=== PATIENT | female | born 1950 | race Two or more races ===

== ENCOUNTER 2016-08-18 23:50 | Emergency (ER) | payer OTHER ==
[~2016-08-18 23:50] MED LIST: AMITRIPTYLINE H25 MG PO; AMITRIPTYLINE H50 MG PO; DICLOFENAC SODI50 MG PO; EXCEDRIN MIGRA1 EACH PO; GLUCOPHAGE500 M1 PO; INDERAL LA60 M1 PO; INDERAL20 MG PO; PROTONIX PO; [UNRECOGNIZED DRUG - OTHER]
== END 2016-08-19 00:57 | disposition home or self-care (01) ==
LOC: SED 23:50
DX: S01.512A Laceration without foreign body of oral cavity, initial encounter (principal); I10 Essential (primary) hypertension; E11.9 Type 2 diabetes mellitus without complications; X58.XXXA Exposure to other specified factors, initial encounter
CPT/HCPCS: 99283

== ENCOUNTER → 2016-10-28 | Outpatient (CLI) | payer OTHER ==
--- NOTE | ~2016-10-28 | BD1 ---
[facility] A Service of [facility] & [facility] RADIOLOGY TEXT RESULTS PATIENT: ANABELLE GEORGE LOCATION: SRA : 46 UNIT #: [id number] AGE: [address]: BECCA ALAS APR SEX: F ORDER DR: [id number] [address] [address] [id number] O MR#: [id number] Acc #: [id number] NAME: ANABELLE GEORGE : 1950 SEX: F STUDY DATE/TIME: 10/28/2016 10:14 UNIT: [facility] ROOM: STUDY DESCRIPTION: BD Dexa Bone Dens 1+ Site Attending Physician: Becca Alas Aprn Referring Physician: Becca Alas Aprn Ordering Physician: Becca Alas Aprn Primary Care Physician: Becca Alas Aprn MEDICAL IMAGING REPORT This report is preliminary unless electronic signature is present. EXAM DEXA scan HISTORY 66-year-old female postmenopausal screening for osteoporosis. FINDINGS Bone density assessed utilizing a Trovebox bone densitometer. Total bone density within the lumbar spine was calculated 1.155 g/cm2. T-score score -0.2. Bone density within the proximal femurs was calculated at 0.944 g/cm2 the left femoral neck with a T-score of -0.7. In the right femoral neck this was calculated 1.072 g/cm2 with a T-score of 0.2. IMPRESSION Bone density within the lumbar spine and proximal femurs is within 1 standard deviation of the mean and therefore considered normal. Dictated by... Raj Bowers M.D. THIS IS AN ELECTRONICALLY VERIFIED REPORT Raj Bowers M.D. at 10/28/2016 3:32 PM Penelope TD: 10/28/2016 11:54 JOB #: [id number] MEDICAL IMAGING REPORT Page 1 of 1
== END | disposition home or self-care (01) ==
LOC: SRAD 08:56
DX: Z13.820 Encounter for screening for osteoporosis (principal); Z78.0 Asymptomatic menopausal state
CPT/HCPCS: 77080

== ENCOUNTER → 2017-03-03 | Outpatient (CLI) | payer OTHER ==
--- NOTE | ~2017-03-03 | US37 ---
[facility] A Service of [facility] RADIOLOGY TEXT RESULTS PATIENT: ANABELLE GEORGE LOCATION: SNIV : 46 UNIT #: [id number] AGE: [address]: BECCA ALAS APR SEX: F ORDER DR: [id number] [address] [address] [id number] P MR#: [id number] Acc #: [id number] NAME: ANABELLE GEORGE : 1950 SEX: F STUDY DATE/TIME: 03/03/2017 10:16 UNIT: SNIV ROOM: STUDY DESCRIPTION: US Carotid W/Doppler Bilateral Attending Physician: Becca Alas Aprn Referring Physician: Becca Alas Aprn Ordering Physician: Becca Alas Aprn Primary Care Physician: Becca Alas Aprn MEDICAL IMAGING REPORT This report is preliminary unless electronic signature is present. EXAM Bilateral carotid ultrasound DATE 03/03/2017 HISTORY Left-side carotid bruit. Headache. Diabetes. COMPARISON None. FINDINGS Real-time ventura-scale, color Doppler, spectral Doppler imaging was performed of the bilateral cervical carotid arteries and vertebral arteries. Estimated stenosis is based on standard NASCET methodology. FINDINGS No significant atherosclerotic plaquing is demonstrated within the right common carotid artery or visualized internal carotid artery. Right internal carotid artery peak systolic velocity proximal segment 88.2 cm/sec, mid segment 89.0 cm/sec, distal segment not seen by the technologist. Patient states the distal segment visualization was technically difficult. Right external carotid artery is patent. Normal spectral Doppler waveforms are demonstrated. Right vertebral artery cannot be satisfactorily visualized, not seen and not heard. The left common carotid artery demonstrates no significant atherosclerotic disease. Suspected mild plaquing in the proximal left internal carotid artery. The left internal carotid artery peak systolic velocity proximal segment 122.6 cm/sec, mid segment 64.6 cm/second, distal segment 70.4 cm/sec. Left external carotid artery is patent. Normal spectral Doppler [facility] A Service of [facility] & [facility] RADIOLOGY TEXT RESULTS PATIENT: ANABELLE GEORGE LOCATION: SNIV : 46 UNIT #: [id number] AGE: [address]: BECCA ALAS APR SEX: F ORDER DR: waveforms are demonstrated. Left vertebral artery is patent with normal antegrade flow. IMPRESSION 1. The study is limited. The distal right internal carotid artery cannot be visualized. Additionally, the right vertebral artery could neither be seen nor heard. As such, patency of these vessels cannot be accurately assessed. If there is continued clinical concern for right-side carotid disease, dedicated CTA of the neck would be recommended. 2. Less than 50% luminal stenosis in the left internal carotid artery based on NASCET methodology. 3. Patency antegrade flow left vertebral artery. 4. Bilateral external carotid arteries are patent. Dictated by... Anuja Morales M.D. THIS IS AN ELECTRONICALLY VERIFIED REPORT Anuja Morales M.D. at 03/04/2017 8:54 AM [facility]/sharif TD: 03/03/2017 20:00 JOB #: [id number] MEDICAL IMAGING REPORT Page 1 of 1
== END | disposition home or self-care (01) ==
LOC: SNIV 03-02 10:30
DX: E78.00 Pure hypercholesterolemia, unspecified (principal); I65.22 Occlusion and stenosis of left carotid artery
CPT/HCPCS: 93880